=== PATIENT | female | born 1940 | race Caucasian/White ===

== ENCOUNTER 2021-02-25 20:33 | Inpatient (IN) ==
[2021-02-25 21:11] LABS: Basophils # 0.1 K/mcL (0.0-0.2); Basophils % 0.5 %; Eosinophils # 0.1 K/mcL (0.0-0.6); Eosinophils % 0.5 %; Hematocrit 35.5 % (35.3-44.9); Immature Granulocytes % 1.3 % (0-4); Lymphocytes # 0.9 K/mcL (0.6-4.6); Lymphocytes % 6.9 %; Mean Platelet Volume 10.6 fL (9.4-12.4); Monocytes # 0.8 K/mcL (0.0-1.3); Monocytes % 6.3 %; Neutrophils # 11.1 K/mcL (1.6-8.9); Platelet Count 344 K/mcL (140-400); Red Blood Count 4.08 M/mcL (3.82-4.97); Red Cell Distribution Width 17.8 % (11.5-14.5); Segmented Neutrophils % 84.5 %; White Blood Count 13.1 K/mcL (4.3-11.1)
[2021-02-25 21:30] LABS: Albumin 3.8 g/dL (3.5-5.7); Albumin/Globulin Ratio 1.3 (1.1-2.2); INR 1.6; Potassium 3.4 mEq/L (3.5-5.1); Prothrombin Time 18.8 Seconds (9.4-12.1); Total Protein 6.8 g/dL (6.4-8.9)
[2021-02-25] MEDS ORDERED: Furosemide 40 MG/4 ML VIAL IVP ONE (21:58)
[2021-02-25] MEDS ORDERED: cefTRIAXone 1,000 MG in 0.9 % Sodium Chloride Mini Bag 100 ML IVPB ONE ×2 (21:58→23:54)
[2021-02-25] MEDS ORDERED: Azithromycin 500 MG in 0.9 % Sodium Chloride 250 ML IVPB ONE (21:58)
[2021-02-25 23:05] LABS: Bilirubin,Urine Negative (Negative); Blood,Urine Small (Negative); Clarity,Urine Clear (Clear); Color,Urine Yellow (Yellow); Glucose,Urine (UA) Normal (Normal); Ketones,Urine Negative (Negative); Leukocyte Esterase,Urine Negative (Negative); Nitrite,Urine Positive (Negative); Protein,Urine >=300 mg/dL (Neg-Trace); Specific Gravity,Urine 1.025 (1.010-1.025); Urobilinogen,Urine Normal (Normal)
[2021-02-25 23:11] LABS: Squamous Epithelial Cell,Urine Moderate per hpf (None-Few)
[2021-02-25 23:12] LABS: Bacteria,Urine Many per hpf (None-Few)
[2021-02-25] MEDS ORDERED: Naloxone 0.4 MG/ML INJ IVP PRN (23:54)
[2021-02-26] MEDS: Ipratropium/Albuterol Neb 3 ML IH SCH ×6 (00:48→20:00)
[2021-02-26 05:11] LABS: Eosinophils % 0.2 %; Hematocrit 33.2 % (35.3-44.9); Hemoglobin 10.3 g/dL (11.5-15.4); Immature Granulocytes % 0.9 % (0-4); Lymphocytes % 9.5 %; Mean Corpuscular Hemoglobin 27.2 pg (28.0-33.3); Mean Corpuscular Volume 87.8 fL (83.0-100.0); Mean Platelet Volume 10.4 fL (9.4-12.4); Monocytes % 6.6 %; Platelet Count 306 K/mcL (140-400); Red Blood Count 3.78 M/mcL (3.82-4.97); Red Cell Distribution Width 17.6 % (11.5-14.5); Segmented Neutrophils % 82.4 %; White Blood Count 11.6 K/mcL (4.3-11.1)
[2021-02-26 05:12] LABS: Basophils # 0.1 K/mcL (0.0-0.2); Basophils % 0.4 %; Lymphocytes # 1.1 K/mcL (0.6-4.6); Monocytes # 0.8 K/mcL (0.0-1.3); Neutrophils # 9.6 K/mcL (1.6-8.9)
[2021-02-26 05:30] LABS: Calcium 8.8 mg/dL (8.6-10.3); Potassium 3.8 mEq/L (3.5-5.1)
[2021-02-26] MEDS: Levothyroxine 25 MCG TABLET PO SCH (06:49)
[2021-02-26] MEDS: Metoprolol XL (24 HR) Succ 50 MG TAB.ER.24H PO SCH (08:28)
[2021-02-26] MEDS: lisinopriL 20 MG TABLET PO SCH (08:28)
[2021-02-26] MEDS: amLODIPine 5 MG TABLET PO SCH (08:28)
[2021-02-26] MEDS: Furosemide 20 MG/2 ML VIAL IVP SCH ×2 (08:31→17:19)
[2021-02-26 10:37] LABS: Adenovirus Not Detected (Not Detect); Bordetella Pertussis Not Detected (Not Detect); Chlamydophila pneumoniae Not Detected (Not Detect); Coronavirus 229E Not Detected (Not Detect); Coronavirus HKU1 Not Detected (Not Detect); Coronavirus NL63 Not Detected (Not Detect); Coronavirus OC43 Not Detected (Not Detect); Human Metapneumovirus Not Detected (Not Detect); Human Rhinovirus/Enterovirus Not Detected (Not Detect); Influenza A Subtype 2009 H1 Not Detected (Not Detect); Influenza B Not Detected (Not Detect); Mycoplasma pneumoniae Not Detected (Not Detect); Parainfluenza Virus 1 Not Detected (Not Detect); Parainfluenza Virus 2 Not Detected (Not Detect); Parainfluenza Virus 3 Not Detected (Not Detect); Parainfluenza Virus 4 Not Detected (Not Detect); Respiratory Syncytial Virus Not Detected (Not Detect); SARS-CoV-2 Not Detected (Not Detect)
[2021-02-26] MEDS: *HR* Rivaroxaban 15 MG TABLET PO SCH (17:19)
[2021-02-26] MEDS: Azithromycin 500 MG in 0.9 % Sodium Chloride 250 ML IVPB SCH (20:53)
[2021-02-26] MEDS ORDERED: cefTRIAXone 2,000 MG in 0.9 % Sodium Chloride Mini Bag 100 ML IVPB SCH (21:00)
[2021-02-26] MEDS: cefTRIAXone 2,000 MG in Water for inj. (sterile) 10 ML IVP SCH (21:58)
[2021-02-27] MEDS: Ipratropium/Albuterol Neb 3 ML IH SCH ×6 (00:30→20:30)
[2021-02-27] MEDS: Levothyroxine 25 MCG TABLET PO SCH (06:35)
[2021-02-27 07:17] LABS: Basophils % 0.4 %; Eosinophils # 0.2 K/mcL (0.0-0.6); Eosinophils % 1.7 %; Hematocrit 31.3 % (35.3-44.9); Hemoglobin 9.5 g/dL (11.5-15.4); Lymphocytes # 0.8 K/mcL (0.6-4.6); Lymphocytes % 8.2 %; Mean Corpuscular HGB Conc 30.4 g/dL (31.6-35.5); Mean Corpuscular Hemoglobin 27.1 pg (28.0-33.3); Mean Corpuscular Volume 89.4 fL (83.0-100.0); Mean Platelet Volume 10.4 fL (9.4-12.4); Monocytes # 0.8 K/mcL (0.0-1.3); Monocytes % 7.9 %; Neutrophils # 7.8 K/mcL (1.6-8.9); Platelet Count 233 K/mcL (140-400); Red Cell Distribution Width 17.9 % (11.5-14.5); Segmented Neutrophils % 80.8 %; White Blood Count 9.7 K/mcL (4.3-11.1)
[2021-02-27 07:43] LABS: Calcium 8.5 mg/dL (8.6-10.3); Potassium 3.2 mEq/L (3.5-5.1)
[2021-02-27] MEDS: amLODIPine 5 MG TABLET PO SCH (07:54)
[2021-02-27] MEDS: lisinopriL 20 MG TABLET PO SCH (07:54)
[2021-02-27] MEDS: Furosemide 20 MG/2 ML VIAL IVP SCH ×2 (07:54→17:09)
[2021-02-27] MEDS: Metoprolol XL (24 HR) Succ 50 MG TAB.ER.24H PO SCH (07:54)
[2021-02-27] MEDS ORDERED: Perflutren Lipid Microsphere 1.3 ML in 0.9 % Sodium Chloride 8.7 ML IVP PRN (08:04)
[2021-02-27] MEDS ORDERED: cloNIDine HCL 0.1 MG TABLET PO PRN (09:50)
[2021-02-27] MEDS: *HR* Rivaroxaban 15 MG TABLET PO SCH (17:09)
[2021-02-27 19:43] VITALS: PULSE 79
[2021-02-27] MEDS: Azithromycin 500 MG in 0.9 % Sodium Chloride 250 ML IVPB SCH (21:35)
[2021-02-27] MEDS: cefTRIAXone 2,000 MG in Water for inj. (sterile) 10 ML IVP SCH (21:44)
[2021-02-27 23:30] VITALS: BP 152/66; TEMP 98
[2021-02-28] MEDS: Ipratropium/Albuterol Neb 3 ML IH SCH ×4 (00:22→12:47)
[2021-02-28] MEDS: Levothyroxine 25 MCG TABLET PO SCH (06:30)
[2021-02-28 07:09] LABS: Basophils % 0.4 %; Eosinophils # 0.3 K/mcL (0.0-0.6); Eosinophils % 2.5 %; Hematocrit 31.2 % (35.3-44.9); Hemoglobin 9.4 g/dL (11.5-15.4); Immature Granulocytes % 0.6 % (0-4); Lymphocytes # 0.8 K/mcL (0.6-4.6); Lymphocytes % 7.6 %; Mean Corpuscular HGB Conc 30.1 g/dL (31.6-35.5); Mean Corpuscular Hemoglobin 26.9 pg (28.0-33.3); Mean Corpuscular Volume 89.1 fL (83.0-100.0); Mean Platelet Volume 11.1 fL (9.4-12.4); Monocytes # 0.9 K/mcL (0.0-1.3); Monocytes % 8.3 %; Neutrophils # 8.4 K/mcL (1.6-8.9); Platelet Count 231 K/mcL (140-400); Red Cell Distribution Width 17.7 % (11.5-14.5); Segmented Neutrophils % 80.6 %; White Blood Count 10.4 K/mcL (4.3-11.1)
[2021-02-28 07:28] LABS: Calcium 8.6 mg/dL (8.6-10.3); Potassium 3.5 mEq/L (3.5-5.1)
[2021-02-28] MEDS: Furosemide 20 MG/2 ML VIAL IVP SCH (08:15)
[2021-02-28] MEDS: Metoprolol XL (24 HR) Succ 50 MG TAB.ER.24H PO SCH (08:15)
[2021-02-28] MEDS: lisinopriL 20 MG TABLET PO SCH (08:16)
[2021-02-28] MEDS: amLODIPine 5 MG TABLET PO SCH (08:16)
[2021-02-28 13:17] VITALS: O2SAT 96
[2021-02-28 14:45] VITALS: RESP 16
== END 2021-02-28 15:00 | disposition home health service (06) | DRG 193 ==
LOC: EMEROOPIK 20:33 → INPPIK 20:33
PROVIDERS: ADMIT Family Medicine; ATTEND Family Medicine